=== PATIENT | female | born 1980 | race Caucasian/White ===

== ENCOUNTER 2017-07-22 05:52 | Day surgery (SDC) | payer BC ==
[2017-07-19 11:33] VITALS: BMI 31.9
[2017-07-22] MEDS ORDERED: Sodium Chloride 0.9% 10 ML ONE (06:24)
[2017-07-22] MEDS ORDERED: Thrombin 5000 UNITS/5 ML VIAL ONE (06:24)
[2017-07-22 06:33] LABS: Hematocrit 42.1 % (36.0-47.0); Mean Platelet Volume 7.3 fL (7.4-10.4); Red Blood Cell (RBC) Count 4.56 mill/uL (4.20-5.40); White Blood Cell (WBC) Count 8.7 thou/uL (4.8-10.8)
[2017-07-22] MEDS ORDERED: Fentanyl 100 MCG/2 ML VIAL ONE ×2 (06:49→09:31)
[2017-07-22] MEDS ORDERED: Albuterol Sulfate HFA (OR ONLY) ONE (06:50)
[2017-07-22] MEDS ORDERED: CEFAZOLIN/Water 2 GM/20 ML SYRINGE ONE (06:51)
[2017-07-22 06:54] LABS: Anion Gap 12 mmol/L (10-20); BUN (Urea Nitrogen) 18 mg/dL (7.0-18.7); Calc. Creatinine Clearance 176 mL/min (70-130); Calcium 8.6 mg/dL (7.8-10.44); Carbon Dioxide 23 mmol/L (22-29); Chloride 107 mmol/L (98-107); Estimated GFR-MDRD Greater than 90
[2017-07-22] MEDS ORDERED: Scopolamine 1.5 mg/72 hour Patch ONE (06:59)
[2017-07-22] MEDS ORDERED: Promethazine HCl 25 MG/ML VIAL ONE (08:41)
--- NOTE | 2017-07-22 08:42 | OP ---
DATE OF PROCEDURE: 07/22/2017 SURGEON: Thierry Nickerson M.D. ASSISTANT FRONT DESK MANAGER: GUERLINE Payton PROCEDURE: Left L4-L5 laminectomy, facetectomy, foraminotomy, interbody arthrodesis, intravertebral biomechanical device, local morselized autograft, demineralized bone matrix, posterior lateral arth rodesis and pedicle screw instrumentation left L4-5. PROCEDURE IN DETAIL: The patient was brought into the operating room, intubated. She was rolled in the prone position on gel-filled chest rolls. Incision made exposing L4 and L5 and our level was c onfirmed by x-ray. We performed left L4-5 hemilaminectomy, facetectomy, and foraminotomy, completel y decompressing the neural elements. The disc space was incised and debrided and the bony endplates decorticated for the purpose of arthrodesis. An appropriately sized intravertebral biomechanical [place] device was brought into the field, filled with demineralized bone matrix and local morselized au tograft, and tapped into place securely at L4-5. Next, pedicle screws were placed at left L4 and le ft L5 using lateral fluoroscopic guidance and the positioning was confirmed with rotational x-ray. A sherri was secured between the screws, connected by nuts which were final tightened. The wound was t hen extensively irrigated, immaculate hemostasis was secured. Vancomycin powder was applied and the wound was closed in anatomic layers.
[2017-07-22] MEDS ORDERED: HYDROcodone/Acetaminophen 10/325 mg Tablet ONE (11:42)
== END 2017-07-22 12:10 | disposition home or self-care (01) ==
LOC: SDC 05:52
PROVIDERS: ATTEND Neurological Surgery
PROC: 0SG00AJ Fusion of Lumbar Vertebral Joint with Interbody Fusion Device, Posterior Approach, Anterior Column, Open Approach (ICD-10-PCS; principal; 2017-07-22)
PROC: 00NY0ZZ Release Lumbar Spinal Cord, Open Approach (ICD-10-PCS; principal; 2017-07-22)
DX: M54.16 Radiculopathy, lumbar region (principal); Z79.2 Long term (current) use of antibiotics; Z79.899 Other long term (current) drug therapy; Z98.1 Arthrodesis status; Z90.710 Acquired absence of both cervix and uterus; Z90.89 Acquired absence of other organs; Z98.890 Other specified postprocedural states
CPT/HCPCS: 76001; 80048; 85027; 93005; 93010; 96374; A4216; C1713; C1768; J0131; J1170; J2270; J2550; J3010; J3370; J3490

== ENCOUNTER 2017-07-23 09:59 | Emergency (ER) | payer BC | END 2017-07-23 14:30 | disposition home or self-care (01) | LOC: ERS 09:59 | DX: G89.18 Other acute postprocedural pain (principal); M54.5 Low back pain; E78.5 Hyperlipidemia, unspecified; E03.9 Hypothyroidism, unspecified; F41.9 Anxiety disorder, unspecified | CPT/HCPCS: 96374; J1170 ==

== ENCOUNTER 2017-08-06 15:14 | Outpatient (CLI) | payer BC ==
--- NOTE | 2017-08-06 17:07 | RAD ---
TWO VIEWS OF THE LUMBAR SPINE 08/06/17 COMPARISON: 03/16/11. HISTORY: Evaluate lumbar disc disease, status post surgery two weeks ago. FINDINGS: Five lumbar type vertebral bodies are present. There is a left sided pedical screw at L4 and L5 with a vertically oriented interlocking sherri. There is an intervertebral disc device at L4-5 as well. There is no evidence for hardware failure. Vertebral body height and alignment is unremarkable. IMPRESSION: Postoperative change within the lumbar spine as above. POS: [facility]
== END 2017-08-06 15:15 | disposition home or self-care (01) ==
LOC: TBSIIMAG 15:14
PROVIDERS: ATTEND Physician Assistant
DX: M51.86 Other intervertebral disc disorders, lumbar region (principal); Z98.890 Other specified postprocedural states
CPT/HCPCS: 72100

== ENCOUNTER 2017-09-18 13:51 | Outpatient (CLI) | payer BC ==
--- NOTE | 2017-09-18 15:12 | RAD ---
LUMBAR SPINE RADIOGRAPHS TWO VIEWS: Date: 09-18-17 Provided Clinical History: Lumbar disc disease. Comparison: 08-06-17 FINDINGS: Five non rib bearing lumbar type vertebral bodies are demonstrated. Lumbar alignment appears normal. Vertebral body heights appear preserved. Unilateral left sided pedicle screws and vertical interconne cting sherri span L4-5 with an associated intervertebral disc device at L4-5. Pedicles appear intact as visualized. No lytic or blastic lesions are apparent. There is no evidence for hardware lucency or migration. IMPRESSION: Stable radiographic appearance of the lumbar spine. POS: [facility]
== END 2017-09-18 13:52 | disposition home or self-care (01) ==
LOC: TBSIIMAG 13:51
PROVIDERS: ATTEND Neurological Surgery
DX: M51.36 Other intervertebral disc degeneration, lumbar region (principal)
CPT/HCPCS: 72100

== ENCOUNTER 2018-02-24 05:55 | Inpatient (IN) | payer BC ==
[2018-02-24] MEDS ORDERED: CEFAZOLIN/Water 2 GM/20 ML SYRINGE ONE (06:15)
[2018-02-24] MEDS ORDERED: Midazolam HCl 2 mg/2 ml Vial ONE ×2 (06:20→06:56)
[2018-02-24] MEDS ORDERED: Fentanyl 100 MCG/2 ML VIAL ONE ×4 (06:20→10:21)
[2018-02-24] MEDS ORDERED: Lidocaine 2% Jelly 5 ML TUBE ONE (06:20)
[2018-02-24] MEDS ORDERED: Sodium Chloride 0.9% 10 ML ONE (06:33)
[2018-02-24 06:39] LABS: Hemoglobin 13.7 g/dL (12.0-16.0); Mean Corpuscular HGB CONC 34.2 g/dL (32.0-36.0); Mean Corpuscular Hemoglobin 30.5 pg (27.0-31.0); Mean Corpuscular Volume 89.1 fl (81.0-99.0); Mean Platelet Volume 6.7 fL (7.4-10.4); Platelet Count 254 thou/uL (130-400); RBC Distribution Width 11.6 % (11.5-14.5); White Blood Cell (WBC) Count 7.5 thou/uL (4.8-10.8)
[2018-02-24] MEDS ORDERED: Scopolamine 1.5 mg/72 hour Patch ONE (06:55)
[2018-02-24 06:56] LABS: Anion Gap 13 mmol/L (10-20); BUN (Urea Nitrogen) 17 mg/dL (7.0-18.7); Calc. Creatinine Clearance 197 mL/min (70-130); Carbon Dioxide 21 mmol/L (22-29); Chloride 108 mmol/L (98-107); Estimated GFR-MDRD Greater than 90; Glucose 94 mg/dL (70-105); Potassium 3.6 mmol/L (3.5-5.1); Sodium 138 mmol/L (136-145)
[2018-02-24] MEDS ORDERED: PROPOFOL 40 ML ONE (07:01)
[2018-02-24] MEDS ORDERED: Promethazine HCl 25 MG/ML VIAL ONE ×2 (07:01→09:15)
[2018-02-24] MEDS ORDERED: HYDROmorphone 0.5 MG/0.5 ML SYRINGE ONE (09:25)
--- NOTE | 2018-02-24 09:50 | OP ---
DATE OF PROCEDURE: 02/24/2018 SURGEON: Thierry Nickerson M.D. BARBER OR BEAUTY SHOP MANAGER: None. PROCEDURE: Removal of hardware L4-5, posterolateral arthrodesis, cancellous bone chips, BMP L4-5. PROCEDURE IN DETAIL: The patient was brought to the operating room and intubated. She was rolled in the prone position on gel-filled chest rolls. A previous incision was reopened. The L4-5 levels ex posed. The prior screws and rods were identified at left L4-5. We then explored the intervertebral disk space, identified the intravertebral device, which was loose and had migrated as anticipated. T his was removed. The right-sided laminar and posterolateral surfaces were prepared for the purpose o f arthrodesis and a combination of cancellous bone chips and BMP was laid over the right laminar and posterolateral surfaces for the purpose of arthrodesis. The wound was extensively irrigated. Vancom ycin powder was applied and the wound was closed in anatomic layers.
[2018-02-24] MEDS ORDERED: Cyclobenzaprine 10 MG TAB PO PRN ×2 (11:48→12:01)
[2018-02-24] MEDS ORDERED: Milk Of Magnesia 30 ML UDCUP PO PRN (12:01)
[2018-02-24] MEDS ORDERED: traMADol HCl 50 MG TAB PO PRN (12:01)
[2018-02-24] MEDS ORDERED: Promethazine HCl 12.5 MG SUPP PR PRN (12:01)
[2018-02-24] MEDS ORDERED: Promethazine 25 MG TAB PO PRN (12:01)
[2018-02-24] MEDS ORDERED: Morphine 4 MG/ML Carpuject SLOW IVP PRN (12:01)
[2018-02-24] MEDS ORDERED: HYDROcodone/Acetaminophen 10/325 mg Tablet PO PRN (12:01)
[2018-02-24] MEDS ORDERED: Mag-Al 1200 mg/1200 mg/30 ML UDCUP PO PRN (12:01)
[2018-02-24] MEDS ORDERED: Promethazine HCl 25 MG/ML VIAL IM PRN (12:01)
[2018-02-24] MEDS ORDERED: Bisacodyl 10 MG SUPP PR PRN (12:01)
[2018-02-24] MEDS ORDERED: Ondansetron HCl/PF 4 MG/2 ML Vial SLOW IVP PRN (12:04)
[2018-02-24] MEDS ORDERED: Morphine 4 MG/ML VIAL SLOW IVP PRN (12:15)
[2018-02-24] MEDS: HYDROcodone/Acetaminophen 10/325 mg Tablet PO PRN ×3 (12:17→21:28)
[2018-02-24] MEDS: Sodium Chloride 0.9% 1,000 ML IV SCH ×3 (12:18→23:57)
[2018-02-24 12:36] VITALS: BMI 33.3
[2018-02-24] MEDS ORDERED: Dexamethasone 20 MG/5 ML VIAL ONE (13:57)
[2018-02-24] MEDS ORDERED: Lidocaine 1% PF 5 ML VIAL ONE (13:57)
[2018-02-24] MEDS ORDERED: Ondansetron HCl/PF 4 MG/2 ML Vial ONE (13:57)
[2018-02-24] MEDS ORDERED: PROPOFOL 200 MG/20 ML VIAL ONE (13:57)
[2018-02-24] MEDS ORDERED: Glycopyrrolate 0.2 MG/ML 5 ML SYRINGE ONE (13:57)
[2018-02-24] MEDS: CEFAZOLIN/Water 2 GM/20 ML SYRINGE SLOW IVP SCH ×2 (14:44→21:39)
[2018-02-24] MEDS: traMADol HCl 50 MG TAB PO PRN ×2 (17:41→23:48)
[2018-02-24] MEDS: busPIRone HCl 10 MG TAB PO SCH (20:33)
[2018-02-24] MEDS ORDERED: Melatonin 3 MG TAB PO SCH (21:00)
[2018-02-24] MEDS ORDERED: Rosuvastatin 10 MG TAB PO SCH (21:00)
[2018-02-25] MEDS: HYDROcodone/Acetaminophen 10/325 mg Tablet PO PRN ×2 (02:55→08:23)
[2018-02-25 04:47] VITALS: TEMP 98.4
[2018-02-25] MEDS ORDERED: Levothyroxine Sodium 75 MCG TAB PO SCH (06:00)
[2018-02-25] MEDS: traMADol HCl 50 MG TAB PO PRN (06:08)
--- NOTE | 2018-02-25 07:11 | DIS ---
DATE OF ADMISSION: 02/24/2018 DATE OF DISCHARGE: 02/25/2018 ATTENDING PHYSICIAN: Dr. Thierry Nickerson. DISCHARGE SUMMARY: The patient is a 37-year-old female known to us for prior L4-L5 diskect filippo and fusion, who has been seen in our office for progressive worsening low back pain and left leg pain. Her plain x-rays revealed migration of the interbody device posteriorly. She underwent L4-L5 removal of interbody device and revision of fusion on 02/24/2018 without complication. She was monit ored overnight in the med/surg floor where her pain was well controlled with p.o. medications. She w as tolerating regular diet and voiding appropriately. She was ambulatory easily throughout the [facility]. She has 5/5 strength throughout on my exam. No sensation changes to the extremities. No focal motor weakness. Dressing was dry. We discharged the patient on 02/25/2018 with scripts for [place], t ramadol, Flexeril, and Keflex. I discussed home care precautions and will follow up with the patient in 2 weeks.
[2018-02-25 07:56] VITALS: BP 106/69
[2018-02-25] MEDS ORDERED: Spironolactone 25 MG TAB PO SCH (08:00)
[2018-02-25] MEDS: busPIRone HCl 10 MG TAB PO SCH (08:18)
[2018-02-25] MEDS ORDERED: Cyanocobalamin (Vitamin B-12) 1,000 MCG TAB PO SCH (09:00)
[2018-02-25] MEDS ORDERED: Escitalopram Oxalate 20 mg Tablet PO SCH (09:00)
[2018-02-25] MEDS ORDERED: Multivitamin W/ Minerals 1 TAB PO SCH (09:00)
== END 2018-02-25 10:02 | disposition home or self-care (01) | DRG 517 ==
LOC: SURG A 05:55
PROVIDERS: ADMIT Neurological Surgery; ATTEND Neurological Surgery
PROC: 0SP004Z Removal of Internal Fixation Device from Lumbar Vertebral Joint, Open Approach (ICD-10-PCS; principal; 2018-02-24)
DX: T84.226A Displacement of internal fixation device of vertebrae, initial encounter (principal); M54.16 Radiculopathy, lumbar region; F32.9 Major depressive disorder, single episode, unspecified
CPT/HCPCS: 36415; 76001; 80048; 85027; 93005; 93010; A4216; C1768; J1100; J1170; J2001; J2250; J2405; J2550; J2704; J3010; J3370; J3490

== ENCOUNTER 2018-08-12 06:47 | Day surgery (SDC) | payer BC ==
[2018-08-11 12:35] VITALS: BMI 33.4
[2018-08-12 08:02] VITALS: BP 129/95; TEMP 97.6
[2018-08-12] MEDS ORDERED: HYDROcodone/Acetaminophen 5/325 mg Tablet ONE (08:52)
--- NOTE | 2018-08-12 09:39 | RAD ---
CERVICAL SPINE RADIOGRAPH SERIES: Three views provided. INDICATION: Disk degeneration, neck pain. FINDINGS: ACDF of the C5-6 level is redemonstrated. Hardware is stable. Lateral masses of C1 are appropriatel y aligned. Dens is intact. Prevertebral soft tissues are maintained. IMPRESSION: Stable postoperative cervical spine. POS: [facility]
--- NOTE | 2018-08-12 10:36 | RAD ---
CERVICAL AND LUMBAR MYELOGRAM: HISTORY: Disk degeneration. Previous fusion. COMPARISON: None. EXPOSURE: 1 minute 615.0 Gy per m2. FINDINGS: Initial two view lumbar spine freight agent radiograph demonstrates a unilateral transpedicular screw, left-s ided, at L4 and L5. There are five lumbar type vertebral bodies. No spondylolisthesis or spondyloly sis. No fracture. Successful lumbar puncture for intrathecal contrast administration. A total of 9 mL of Isovue-M 300 contrast was administered intrathecally. The patient tolerated the procedure well. No immediate or post procedure complications. TECHNIQUE: Consent obtained to perform a lumbar puncture with fluoroscopic guidance. The patient's spine was ev aluated. The L2-L3 level was deemed appropriate. The skin was prepped and draped in a sterile fashi on. Lidocaine 1%, buffered with sodium bicarbonate, was used for local anesthesia. Under fluoroscop ic guidance, a 22 gauge spinal needle was advanced into the CSF space. The inner stylet was removed. Via a short tubing catheter, a total of 9 mL of Isovue-M 300 contrast was administered intrathecall y. The patient tolerated the procedure well. No immediate or post procedure complications. IMPRESSION: Successful lumbar puncture for cervical and lumbar myelogram. POS: [facility]
--- NOTE | 2018-08-12 10:38 | CT ---
POST MYELOGRAM LUMBAR SPINE CT: History: Disc degeneration of the lumbar spine. Comparison: None. Technique: Post myelogram lumbar spine CT is performed in the axial plane. Reformatted images are sub mitted for interpretation. FINDINGS: There are five lumbar type vertebral bodies. Lumbar spine vertebral body height is maintained. No fra cture. Unilateral left sided transpedicular screw at L4 and L5. The screw is intact, however, there d oes appear to be some perihilar lucency involving the left L5 screw. There is bone graft material sonia ng the posterior elements at L3-4, L4-5 and L5-S1. There appears to be 1.7 mm of retrolisthesis of L4 upon L5. No retroperitoneal mass, lymphadenopathy, or hematoma. Visualized solid organs and alimentary canal a re unremarkable. Conus medullaris terminates at the L1-2 level. There are post-operative changes in the midline soft tissues. T12-L1: No significant central canal stenosis or neural foraminal narrowing. L1-2: No significant central canal stenosis or neural foraminal narrowing. L2-3: No significant central canal stenosis or neural foraminal narrowing. L3-4: No significant central canal stenosis. Foramina are patent. L4-5: Left laminectomy defect. There is abnormal soft tissue in the left subarticular zone. Findings may represent scar tissue. Possible mass effect upon the traversing left L5 nerve root. Mild ligament um flavum thickening, hypertrophy, and broad based disc bulge. Mild central canal stenosis. Right ziggy ral foramen is patent. There is abnormal soft tissue attenuation of the left neural foramina. These r esult in at least moderate left foraminal narrowing. L5-S1: No significant central canal stenosis. neural foramina are patent. IMPRESSION: 1. Possible perihardware loosening involving a left L5 transpedicular screw. 2. Grade I retrolisthesis of L4 upon L5. Abnormal soft tissue attenuation of the left subarticular zo ne and left neural foramen at L4-5 which may represent scar tissue. Pre and post contrast MRI may be beneficial. POS: [facility]
--- NOTE | 2018-08-12 10:48 | CT ---
POST MYELOGRAM CERVICAL SPINE CT: History: Cervical disc degeneration. Cervical fusion. Comparison: None. FINDINGS: There is straightening of the normal cervical lordosis. There is an anterior fusion plate with transv ertebral body screw at C5 and C6. No perihardware lucency. There is a prosthesis at the C5-6 level. Lateral masses of C1 and C2 as well as the facets have an appropriate articulation. Intact odontoid p rocess. Cervical spine vertebral body height is maintained. There is no fracture. Visualized soft tis karishma neck structures are unremarkable. There is mild mass effect upon the posterior left hypopharanx d ue to medial elevation of the left carotid artery. Upper mediastinum and lung apices are unremarkable. C2-3: No significant central canal stenosis. Neural foramina are patent. C3-4: No significant central canal stenosis. Neural foramina are patent. C4-5: No significant central canal stenosis. Neural foramina are patent. C5-6: There is a disc prosthesis. There is a left paracentral osteophyte. No significant central jose l stenosis. Foramina are patent. C6-7: No significant disc osteophyte complex. No significant central canal stenosis. Foramina are pat ent. C7-T1: No significant disc osteophyte complex. No significant central canal stenosis. Neural foramin a are patent. T1-2: No significant central canal stenosis. Neural foramina are patent. IMPRESSION: 1. Uncomplicated cervical fusion hardware. 2. No significant central canal stenosis or neural foraminal narrowing. POS: [facility]
== END 2018-08-12 10:20 | disposition home or self-care (01) ==
LOC: RAD 06:47
PROVIDERS: ATTEND Neurological Surgery
DX: M43.16 Spondylolisthesis, lumbar region (principal); M51.9 Unspecified thoracic, thoracolumbar and lumbosacral intervertebral disc disorder; M50.90 Cervical disc disorder, unspecified, unspecified cervical region; Z98.890 Other specified postprocedural states
CPT/HCPCS: 62305; 72040; 72126; 72132

== ENCOUNTER 2018-09-08 08:25 | Inpatient (IN) | payer BC ==
[2018-09-08 10:24] LABS: #Basophils 0.1 thou/uL (0.0-0.2); #Eosinphils 0.2 thou/uL (0.0-0.7); #Lymphocytes 1.8 thou/uL (1.20-3.40); #Monocytes 0.4 thou/uL (0.11-0.59); #Neutrophils 4.2 thou/uL (1.40-6.50); %Basophils 1.2 % (0.0-1.0); %Eosinophils 2.7 % (0.0-10.0); %Lymphocytes 26.5 % (21.0-51.0); %Monocytes 6.5 % (0.0-10.0); %Neutrophils 63.2 % (42.0-75.0); Hemoglobin 13.6 g/dL (12.0-16.0); Mean Corpuscular HGB CONC 33.8 g/dL (32.0-36.0); Mean Corpuscular Hemoglobin 30.7 pg (27.0-31.0); Mean Corpuscular Volume 90.9 fL (78.0-98.0); Mean Platelet Volume 7.3 fL (7.4-10.4); Platelet Count 251 thou/uL (130-400); RBC Distribution Width 10.7 % (11.5-14.5); Red Blood Cell (RBC) Count 4.42 mill/uL (4.20-5.40); White Blood Cell (WBC) Count 6.7 thou/uL (4.8-10.8)
[2018-09-08 10:29] LABS: Anion Gap 12 mmol/L (10-20); BUN (Urea Nitrogen) 15 mg/dL (7.0-18.7); Calc. Creatinine Clearance 175 mL/min (70-130); Carbon Dioxide 26 mmol/L (22-29); Chloride 104 mmol/L (98-107); Estimated GFR-MDRD Greater than 90; Glucose 93 mg/dL (70-105); Potassium 4.5 mmol/L (3.5-5.1); Sodium 137 mmol/L (136-145)
[2018-09-08] MEDS ORDERED: Scopolamine 1.5 mg/72 hour Patch ONE (10:35)
[2018-09-08] MEDS ORDERED: Sodium Chloride 0.9% 10 ML ONE (11:59)
[2018-09-08] MEDS ORDERED: Midazolam HCl 2 mg/2 ml Vial ONE (13:01)
[2018-09-08] MEDS ORDERED: Fentanyl 100 MCG/2 ML VIAL ONE ×5 (13:01→15:37)
[2018-09-08] MEDS ORDERED: Promethazine HCl 25 MG/ML VIAL SLOW IVP PRN (14:27)
[2018-09-08] MEDS ORDERED: Ondansetron HCl/PF 4 MG/2 ML Vial IVP PRN (14:27)
[2018-09-08] MEDS ORDERED: Promethazine HCl 25 MG/ML VIAL IM PRN ×2 (14:27→14:39)
[2018-09-08] MEDS ORDERED: diphenhydrAMINE 25 MG CAP PO PRN (14:39)
[2018-09-08] MEDS ORDERED: Milk Of Magnesia 30 ML UDCUP PO PRN (14:39)
[2018-09-08] MEDS ORDERED: Mag-Al 1200 mg/1200 mg/30 ML UDCUP PO PRN (14:39)
[2018-09-08] MEDS ORDERED: tiZANidine HCl 4 MG TAB PO PRN (14:39)
[2018-09-08] MEDS ORDERED: diphenhydrAMINE 50 MG/ML VIAL IVP PRN (14:39)
[2018-09-08] MEDS ORDERED: HYDROcodone/Acetaminophen 7.5/325 mg Tablet PO PRN (14:39)
[2018-09-08] MEDS ORDERED: Promethazine 25 MG TAB PO PRN (14:39)
[2018-09-08] MEDS ORDERED: Promethazine HCl 12.5 MG SUPP PR PRN (14:39)
[2018-09-08] MEDS ORDERED: Ondansetron PF 4 MG/2 ML Vial SLOW IVP PRN (14:40)
[2018-09-08] MEDS ORDERED: Cyclobenzaprine 10 MG TAB PO PRN (14:42)
[2018-09-08] MEDS ORDERED: SUMAtriptan Succinate 50 MG TAB PO PRN (14:44)
[2018-09-08] MEDS ORDERED: traMADol HCl 50 MG TAB PO PRN (14:45)
--- NOTE | 2018-09-08 14:46 | OP ---
DATE OF PROCEDURE: 09/08/2018 POT RELINER: Obed. PROCEDURE PERFORMED: Removal of hardware, left L4-L5, expiration of spinal fusion, L4-L5, posterolateral arthrodesis, pedicle screw instrumentation, and BMP cancellous bone chips. DESCRIPTION OF PROCEDURE: The patient was brought to the operating room and intubated. She was rolled in the prone position on gel flat chest rolls. The incision was reopened and the L4-L5 level was explored. We removed the previous nuts and rods at left L4-L5 and final loose left L5 screw as anticipated. This was replaced with a wider diameter screw of similar length. The sherri was re-sutured to the screws connected by nuts, which were final tightened. We then placed pedicle screws at right L4 and right L5 using lateral fluoroscopic guidance. The sherri was secured between the screws connected by nuts, which were finally tightened. The wound was extensively irrigated and adequate hemostasis was secured. We explored the spinal fusion at left L4-L5, and there was much more bony growth than I anticipated but was not convinced that fusion was solid. I then placed a combination of BMP on [place] with cancellous bone chips in the right lamina and posterolateral surfaces for the purpose of arthrodesis. Vancomycin powder was applied and the wound was then closed in anatomic layers. Job ID: [id number]
[2018-09-08] MEDS ORDERED: Promethazine HCl 25 MG/ML VIAL ONE (14:51)
[2018-09-08] MEDS ORDERED: Morphine 2 MG/ML SYRINGE SLOW IVP PRN (15:00)
[2018-09-08] MEDS ORDERED: HYDROmorphone 2 MG/ML VIAL ONE (15:54)
[2018-09-08] MEDS: Morphine 4 MG/ML VIAL SLOW IVP PRN ×2 (17:17→18:39)
[2018-09-08 17:23] VITALS: BMI 35.7
--- NOTE | 2018-09-08 17:26 | EKG ---
Test Reason : PREOP Blood Pressure : / mmHG Vent. Rate : 069 BPM Atrial Rate : 069 BPM P-R Int : 172 ms QRS Dur : 090 ms QT Int : 442 ms P-R-T Axes : -03 042 040 degrees QTc Int : 473 ms Normal sinus rhythm Normal ECG When compared with ECG of 24-FEB-2018 06:41, No significant change was found Confirmed by CATHY IGLESIAS ([id number]) on 09/08/2018 5:25:57 PM Referred By: SHILPA Confirmed By:CATHY IGLESIAS
[2018-09-08] MEDS: Sodium Chloride 0.9% 1,000 ML IV SCH (18:37)
[2018-09-08] MEDS ORDERED: Rosuvastatin 10 MG TAB PO SCH (21:00)
[2018-09-08] MEDS ORDERED: Escitalopram Oxalate 20 mg Tablet PO SCH (21:00)
[2018-09-08] MEDS ORDERED: Spironolactone 25 MG TAB PO SCH (21:00)
[2018-09-08] MEDS ORDERED: Melatonin 3 MG TAB PO SCH (21:00)
[2018-09-08] MEDS: busPIRone HCl 10 MG TAB PO SCH (22:01)
[2018-09-08] MEDS: HYDROcodone/Acetaminophen 7.5/325 mg Tablet PO PRN (22:04)
[2018-09-08] MEDS: CEFAZOLIN 2 GM/50 ML BAG IVPB SCH (22:04)
[2018-09-09] MEDS: Morphine 4 MG/ML VIAL SLOW IVP PRN (03:13)
[2018-09-09] MEDS: Sodium Chloride 0.9% 1,000 ML IV SCH (03:20)
[2018-09-09] MEDS ORDERED: Levothyroxine Sodium 75 MCG TAB PO SCH (06:00)
[2018-09-09] MEDS: CEFAZOLIN 2 GM/50 ML BAG IVPB SCH (06:18)
[2018-09-09] MEDS: HYDROcodone/Acetaminophen 7.5/325 mg Tablet PO PRN ×2 (06:21→10:09)
--- NOTE | 2018-09-09 06:46 | DIS ---
DATE OF ADMISSION: 09/08/2018 DATE OF DISCHARGE: 09/09/2018 HOSPITAL COURSE: The patient is a 38-year-old female, status post removal of hardware and revision of lumbar fusion at L4-L5. Following her surgery, she was transitioned to the floor where her pain was well controlled with p.o. medications. She was tolerating regular diet and voiding appropriately. She has been ambulating easily throughout the department. She did have some incisional drainage, which was mild and reinforced with dressing changes per nursing. I am visiting the patient this morning at the bedside. She is awake, alert, in no acute distress. She is walking without any difficulty. She has 5/5 strength throughout. No focal motor weakness. No reflex asymmetry. She has sensation that is intact to light touch. Her dressing has moderate amount of dark red blood, but there is no active drainage at this time. We will plan to dismiss the patient home. I have discussed home care precautions. The patient has been provided with scripts for [place], Zanaflex, and Keflex. We will follow up in 2 weeks in the office. Job ID: [id number]
[2018-09-09 08:16] VITALS: BP 97/62; TEMP 98.4
[2018-09-09] MEDS: busPIRone HCl 10 MG TAB PO SCH (08:26)
[2018-09-09] MEDS ORDERED: Multivitamin W/ Minerals 1 TAB PO SCH (09:00)
[2018-09-09] MEDS ORDERED: Cyanocobalamin (Vitamin B-12) 1,000 MCG TAB PO SCH (09:00)
== END 2018-09-09 10:16 | disposition home or self-care (01) | DRG 460 ==
LOC: SURG B 08:25 → T4-B 15:43
PROVIDERS: ADMIT Neurological Surgery; ATTEND Neurological Surgery
PROC: 0SG10AJ Fusion of 2 or more Lumbar Vertebral Joints with Interbody Fusion Device, Posterior Approach, Anterior Column, Open Approach (ICD-10-PCS; principal; 2018-09-08)
PROC: 0SP00AZ Removal of Interbody Fusion Device from Lumbar Vertebral Joint, Open Approach (ICD-10-PCS; 2018-09-08)
PROC: 3E0U0GB Introduction of Recombinant Bone Morphogenetic Protein into Joints, Open Approach (ICD-10-PCS; 2018-09-08)
DX: T84.038A Mechanical loosening of other internal prosthetic joint, initial encounter (principal); M96.0 Pseudarthrosis after fusion or arthrodesis; Y83.2 Surgical operation with anastomosis, bypass or graft as the cause of abnormal reaction of the patient, or of later complication, without mention of misadventure at the time of the procedure; Y79.3 Surgical instruments, materials and orthopedic devices (including sutures) associated with adverse incidents
CPT/HCPCS: 36415; 76001; 80048; 85025; 93005; 93010; C1713; J1170; J1200; J2250; J2270; J2405; J2550; J3010; J3370; J3490

== ENCOUNTER 2018-09-26 10:12 | Outpatient (CLI) | payer BC ==
--- NOTE | 2018-09-26 10:41 | RAD ---
LUMBAR SPINE 2 VIEWS: Date: 09/26/18 HISTORY: 38-year-old female with history of lumbar disc disease, follow-up postsurgical. COMPARISON: 09/18/17. FINDINGS: Pedicle screws at L4-L5 with midline surgical skin jayde. No significant malalignment. Minimal gene ralized spondylosis. IMPRESSION: Postop midline recent surgery with laminectomy and fusion changes at L4-L5. Mild lumbar spondylosis. No significant malalignment. POS: [facility]
== END 2018-09-26 10:13 | disposition home or self-care (01) ==
LOC: TBSIIMAG 10:12
PROVIDERS: ATTEND Neurological Surgery
DX: M51.9 Unspecified thoracic, thoracolumbar and lumbosacral intervertebral disc disorder (principal); M47.816 Spondylosis without myelopathy or radiculopathy, lumbar region; Z98.1 Arthrodesis status
CPT/HCPCS: 72100

== ENCOUNTER 2018-11-04 14:44 | Outpatient (CLI) | payer BC ==
--- NOTE | 2018-11-04 15:34 | RAD ---
TWO VIEWS LUMBAR SPINE 11/04/18 HISTORY: Pain. followup surgery. COMPARISON: 09/26/18. FINDINGS: Five lumbar type vertebral bodies. Bilateral transpedicular screws at L4 and L5. There is perihardwar e lucency involving the right transpedicular screw at L4. No evidence of fracture. 2.0 mm retrolisthe sis of L4 upon L5 (previously 2.4 mm retrolisthesis). IMPRESSION: 1. Grade I retrolisthesis of L4 upon L5. 2. Findings suggesting perihardware lucency involving the right transpedicular screw at L4. POS: [facility]
== END 2018-11-04 14:45 | disposition home or self-care (01) ==
LOC: TBSIIMAG 14:44
PROVIDERS: ATTEND Neurological Surgery
DX: M54.5 Low back pain (principal); M43.16 Spondylolisthesis, lumbar region; Z98.890 Other specified postprocedural states
CPT/HCPCS: 72100